=== PATIENT | male | born 1960 | race Two or more races ===

== ENCOUNTER 2018-08-14 08:35 | Day surgery (SDC) | payer OTHER | END 2018-08-14 15:00 | disposition home or self-care (01) | LOC: AMB-ENDOS 08:35 | DX: D12.0 Benign neoplasm of cecum (principal) ==

== ENCOUNTER 2018-10-24 08:45 | Inpatient (IN) | payer OTHER ==
[~2018-10-24] VITALS: Ht 167.6 cm; Wt 85.7 kg
[2018-10-24] MEDS ORDERED: AVAPRO300 MG PO (09:33)
[2018-10-28] MEDS ORDERED: INTESTINEX680 M1 PO (15:00)
[2018-10-28] MEDS ORDERED: PERCOCET 5-3251 EACH PO (15:00)
[2018-10-28] MEDS ORDERED: OMEPRAZOLE20 M1 PO (15:00)
== END 2018-10-28 15:55 | disposition home or self-care (01) | DRG 331 ==
LOC: SURH 10-25 08:45 → O/R 10-25 10:27 → SURH 10-25 10:27
PROVIDERS: ADMIT Surgery
PROC: 07TC4ZZ Resection of Pelvis Lymphatic, Percutaneous Endoscopic Approach (ICD-10-PCS; 2018-10-25)
PROC: 0DJD8ZZ Inspection of Lower Intestinal Tract, Via Natural or Artificial Opening Endoscopic (ICD-10-PCS; 2018-10-25)
PROC: 0DTN4ZZ Resection of Sigmoid Colon, Percutaneous Endoscopic Approach (ICD-10-PCS; principal; 2018-10-25 15:30)
DX: C18.7 Malignant neoplasm of sigmoid colon (principal); I11.9 Hypertensive heart disease without heart failure; R73.01 Impaired fasting glucose; G47.33 Obstructive sleep apnea (adult) (pediatric)

== ENCOUNTER 2021-11-10 09:05 | Outpatient (CLI) | payer OTHER ==
[~2021-11-10 09:05] MED LIST: AVAPRO300 MG PO; INTESTINEX680 M1 PO; OMEPRAZOLE20 M1 PO; PERCOCET 5-3251 EACH PO
== END 2021-11-10 09:18 | disposition home or self-care (01) ==
LOC: SONOGRAMA 09:05
PROVIDERS: ATTEND Specialist
DX: R97.20 Elevated prostate specific antigen [PSA] (principal); N40.3 Nodular prostate with lower urinary tract symptoms

== ENCOUNTER 2022-01-25 08:00 | Outpatient (CLI) | payer OTHER | END 2022-01-25 08:30 | disposition home or self-care (01) | LOC: PPH VACUNA 08:00 | PROVIDERS: ATTEND Emergency Medicine Pediatric Emergency Medicine | DX: Z23 Encounter for immunization (principal) ==

== ENCOUNTER 2025-04-22 09:15 | Inpatient (IN) | payer OTHER ==
[~2025-04-22] VITALS: Ht 167.6 cm; Wt 82.6 kg
[2025-04-22] MEDS ORDERED: ROSUVASTATIN CA10 MG PO (10:34)
[2025-04-22 10:35] VITALS: BP 190/79
[2025-04-28] MEDS ORDERED: CEFTRIAXONE SODIUM 2,000 MG VIAL ONE (12:41)
[2025-04-28] MEDS ORDERED: METRONIDAZOLE/SODIUM CHLORIDE 500 MG/100 ML PIGGYBACK IV ONE (12:41)
[2025-04-28] MEDS ORDERED: DIBUCAINE 30 GM TUBE ONE (13:01)
[2025-04-28] MEDS ORDERED: POVIDONE-IODINE 118 ML BOTT TOP ONE (13:01)
[2025-04-28] MEDS ORDERED: LIDOCAINE HCL 1%/EPINEPHRINE 20ML VIAL IJ ONE (13:02)
[2025-04-28] MEDS ORDERED: BUPIVACAINE HCL/Mpf 0.5% 10ML VIAL ONE (13:02)
[2025-04-28] MEDS ORDERED: HEMOSTATIC MATRIX 1 KIT KIT TOP ONE (13:14)
[2025-04-28] MEDS ORDERED: ONDANSETRON HCL 2 MG/ML VIAL IV PRN (15:15)
[2025-04-28] MEDS ORDERED: OxyCODONE HCL 5 MG TABLET (ROXICODONE) PO PRN (15:15)
[2025-04-28] MEDS ORDERED: MORPHINE SULFATE 4 MG/ML CARTRIDGE IV PRN (15:15)
[2025-04-28] MEDS ORDERED: DEXTROSE 50 % IN WATER 0.5 G/ML VIAL IV PRN (15:15)
[2025-04-28] MEDS ORDERED: 0.9 % SODIUM CHLORIDE 1,000 ML IV SCH (15:15)
[2025-04-28] MEDS ORDERED: HYOSCYAMINE SULFATE 0.125 MG TAB.SUBL SL SCH (17:00)
[2025-04-28] MEDS ORDERED: POLYETHYLENE GLYCOL 3350 17 GM BLIST.PACK PO SCH (17:00)
[2025-04-28] MEDS ORDERED: GABAPENTIN 300 MG CAPSULE PO SCH (17:00)
[2025-04-28] MEDS ORDERED: MORPHINE SULFATE 4 MG/ML VIAL IV ONE ×3 (17:05→19:05)
[2025-04-28] MEDS ORDERED: ROSUVASTATIN CALCIUM 10 MG TABLET PO SCH (17:59)
[2025-04-28] MEDS ORDERED: ENALAPRILAT DIHYDRATE 1.25 MG/ML VIAL IV PRN (18:00)
[2025-04-28] MEDS ORDERED: ACETAMINOPHEN 500 MG GEL..CAP PO SCH (20:00)
[2025-04-28] MEDS ORDERED: CELECOXIB 200 MG CAPSULE PO SCH (21:00)
[2025-04-28] MEDS ORDERED: FAMOTIDINE/PF 20 MG/2 ML VIAL IV PUSH SCH (21:00)
[2025-04-28 21:30] VITALS: BP 158/81; O2SAT 95
[2025-04-29 01:56] VITALS: BP 105/63; O2SAT 100
[2025-04-29 06:16] LABS: BASO % 0.5 % (0.1-1.2); EOS # 0.08 (0.04-0.54); EOS % 1.0 % (0.7-7.0); LYMPH # 1.25 (1.18-3.74); LYMPH % 15.5 % (19.3-53.1); MEAN PLATELET VOLUME 11.40 fl (9.4-12.4); MONO # 0.86 (0.24-0.82); MONO % 10.7 % (4.7-12.5); NEUT # 5.79 (1.56-6.13); NEUT % 72.1 % (34.0-71.1); RED CELL DISTRIBUTION WIDTH 13.8 % (11.6-14.4)
[2025-04-29 07:08] LABS: BUN CREA RATIO 9.0 (7.0-25.0); CREATININE SERUM 0.9 mg/dL (0.70-1.30); GFR 84.43; GLUCOSE FASTING 86.0 mg/dL (65-100); OSMOLALITY SERUM 286.0 MOSM/KG (275-295)
[2025-04-29] MEDS ORDERED: TRAM1TAB98 PO (08:01)
[2025-04-29] MEDS ORDERED: INTESTINEX680 M1 PO (08:01)
[2025-04-29 08:56] VITALS: BP 103/58; O2SAT 95
[2025-04-29] MEDS ORDERED: IRBESARTAN 300 MG TABLET PO SCH (09:00)
[2025-04-29] MEDS ORDERED: ENOXAPARIN SODIUM 40 MG/0.4 ML SYRINGE SUBCUTANEO SCH (17:00)
[2025-04-30] MEDS ORDERED: ENOXAPARIN SODIUM 40 MG/0.4 ML SYRINGE SUBCUTANEO SCH (09:00)
== END 2025-04-29 13:40 | disposition home or self-care (01) | DRG 394 ==
LOC: SURH 04-28 09:15 → O/R 04-28 11:32 → SURH 04-28 15:40
PROVIDERS: ADMIT Surgery; ATTEND Surgery
PROC: 3E0T3BZ Introduction of Anesthetic Agent into Peripheral Nerves and Plexi, Percutaneous Approach (ICD-10-PCS; 2025-04-28)
PROC: 0DBP8ZZ Excision of Rectum, Via Natural or Artificial Opening Endoscopic (ICD-10-PCS; principal; 2025-04-28 16:15)
DX: D12.8 Benign neoplasm of rectum (principal); C18.7 Malignant neoplasm of sigmoid colon; D12.0 Benign neoplasm of cecum; E11.9 Type 2 diabetes mellitus without complications; G47.33 Obstructive sleep apnea (adult) (pediatric)
CPT/HCPCS: 0184T; 64430